=== PATIENT | male | born 1965 | race Caucasian/White ===

== ENCOUNTER 2017-11-18 05:52 | Day surgery (SDC) | payer BC, OTHER ==
[2017-11-18] MEDS ORDERED: GABAPENTIN 300 MG CAP PO ONE (06:06)
[2017-11-18] MEDS ORDERED: ACETAMINOPHEN 500 MG TAB PO ONE (06:06)
[2017-11-18] MEDS ORDERED: ceFAZolin 2 GM/DEXTROSE 100 ML IV ONE (06:06)
[2017-11-18] MEDS ORDERED: LIDOCAINE 1% 2 ML INJ ID PRN (06:07)
[2017-11-18] MEDS ORDERED: LR 1,000 ML IV ONE (06:07)
[2017-11-18] MEDS ORDERED: IBUPROFEN 200 MG TAB PO PRN (06:37)
--- NOTE | 2017-11-18 06:37 | PDHPUP ---
History & Physical Update H&P update statement: This history and physical update is based on an assessment of the patient which was completed after admission or registration (within 24 hours), but prior to the surgery/procedure. H&P update: H&P reviewed & patient examined, no change in patient's condition since H&P completed
[2017-11-18] MEDS ORDERED: CHLORHEXIDINE GLUC HIBICLENS 118 ML BTL TP ONE (07:06)
[2017-11-18] MEDS ORDERED: BUPIVACAINE 0.25% 30 ML SDV ONE (07:06)
[2017-11-18] MEDS ORDERED: THROMBIN (BOVINE) 5,000 UNIT VIAL TP ONE (07:07)
[2017-11-18] MEDS ORDERED: EPINEPHrine 1 MG/ML INJ ONE (07:07)
[2017-11-18] MEDS ORDERED: DEPO METHYLPREDNISOLONE 40 MG/ML SDV ONE (07:07)
[2017-11-18] MEDS ORDERED: BACITRACIN 50,000 UNITS/10 ML SYR IRR ONE (07:08)
[2017-11-18] MEDS ORDERED: MIDAZOLAM 2 MG/2 ML VIAL IVP ONE (07:20)
--- NOTE | 2017-11-18 07:21 | PDANEPAE ---
ANE History of Present Illness [id number] spinal stenosis ANE Past Medical History - Cardiovascular History Hx Hypertension: No Hx Arrhythmias: No Hx Chest Pain: No Hx Coronary Artery / Peripheral Vascular Disease: No Hx CHF / Valvular Disease: No Hx Palpitations: No - Pulmonary History Hx COPD: No Hx Asthma/Reactive Airway Disease: No Hx Recent Upper Respiratory Infection: No Hx Oxygen in Use at Home: No Hx Sleep Apnea: No Sleep Apnea Screening Result - Last Documented: Negative - Neurologic History Hx Cerebrovascular Accident: No Hx Seizures: No Hx Dementia: No Neurologic History Comment: numbness and tingling to bilateral legs - Endocrine History Hx Diabetes: No - Renal History Hx Renal Disorders: No - Liver History Hx Hepatic Disorders: No - Neurological & Psychiatric Hx Hx Neurological and Psychiatric Disorders: No - Cancer History Hx Cancer: No - Congenital Disorder History Hx Congenital Disorders: No - GI History Hx Gastrointestinal Disorders: Yes Gastrointestinal History Comment: reflux - Other Health History Other Health History: none - Chronic Pain History Chronic Pain: No - Surgical History Prior Surgeries: none ANE Review of Systems Review of Systems: - Exercise capacity METS (RN): 4 METS ANE Patient History - Allergies Allergies/Adverse Reactions: EKG PADS Allergy (Uncoded 11/10/17 17:24) Hives - Home Medications Home Medications: Ibuprofen [Motrin (*)] 200 mg PO DAILY PRN 11/03/17 [Last Taken 1 Week Ago ~] Multivitamins [Multivitamin (*)] 1 each PO DAILY 11/03/17 [Last Taken 1 Week Ago ~11/11/17] Omeprazole 20 mg PO DAILY 11/03/17 [Last Taken 1 Day Ago ~11/17/17] ACETAMINOPHEN 11/18/17 [Last Taken 1 Week Ago ~11/11/17] Pepto-Bismol PRN 11/18/17 [Last Taken 1 Day Ago ~11/17/17] - NPO status NPO Since - Liquids (Date): 11/17/17 NPO Since - Liquids (Time): 22:00 NPO Since - Solids (Date): 11/17/17 NPO Since - Solids (Time): 21:00 - Smoking Hx Smoking Status: Never smoked - Family Anes Hx Family Hx Anesthesia Complications: none ANE Labs/Vital Signs - Vital Signs Blood Pressure: 109/70 Heart Rate: 77 Respiratory Rate: 16 O2 Sat (%): 95 Height: 177.8 cm Weight: 68.039 kg ANE Physical Exam - Airway Neck exam: FROM Mallampati Score: Class 1 Mouth exam: normal dental/mouth exam - Pulmonary Pulmonary: no respiratory distress - Cardiovascular Cardiovascular: regular rate and rhythym - ASA Status ASA Status: II ANE Anesthesia Plan Anesthesia Plan: general endotracheal anesthesia
[2017-11-18] MEDS ORDERED: MIDAZOLAM 2 MG/2 ML VIAL ONE (07:23)
[2017-11-18] MEDS ORDERED: PROPOFOL 200 MG/20 ML VIAL ONE (07:27)
[2017-11-18] MEDS ORDERED: fentaNYL 100 MCG/2 ML INJ ONE ×2 (07:27)
[2017-11-18] MEDS ORDERED: HYDROmorphONE/DILAUDID 2 MG/ML INJ ONE (07:27)
[2017-11-18] MEDS ORDERED: fentaNYL 100 MCG/2 ML INJ IVP PRN (08:24)
[2017-11-18] MEDS ORDERED: HYDROCODONE/APAP 5/325 TAB PO PRN (08:24)
[2017-11-18] MEDS ORDERED: DIAZEPAM 5 MG/ML 1 ML SYR IVP PRN (08:24)
[2017-11-18] MEDS ORDERED: HYDROmorphONE/DILAUDID 2 MG/ML INJ IVP PRN (08:24)
[2017-11-18] MEDS ORDERED: PROMETHAZINE HCL 25 MG/ML INJ IVP PRN (08:24)
[2017-11-18] MEDS ORDERED: NALOXONE HCL 0.4 MG/ML INJ IVP PRN (08:24)
[2017-11-18] MEDS ORDERED: MEPERIDINE 25 MG/0.5 ML AMP IVP PRN (08:24)
[2017-11-18] MEDS ORDERED: ONDANSETRON 4 MG/2 ML VIAL IVP PRN (08:24)
[2017-11-18] MEDS ORDERED: PANTOPRAZOLE SODIUM 40 MG TAB PO SCH (09:00)
[2017-11-18] MEDS ORDERED: DEXAMETHASONE 4 MG/ML VIAL ONE (09:34)
[2017-11-18] MEDS ORDERED: ROCURONIUM 50 MG/5 ML VIAL ONE (09:34)
[2017-11-18] MEDS ORDERED: ONDANSETRON 4 MG/2 ML VIAL ONE ×2 (09:34→10:49)
[2017-11-18] MEDS ORDERED: BISMUTH SUBSALICYLATE 524 MG/30 ML UDL PO PRN (09:38)
[2017-11-18] MEDS ORDERED: ACETAMINOPHEN 325 MG TAB PO PRN (09:38)
--- NOTE | 2017-11-18 09:40 | POSTOPPROG ---
Post Op Note Date of Operation: 11/18/17 Surgeon: Annmarie Pires [place] Former Brace End: ERNESTINE Foster Anesthesiologist: Ke Anesthesia: GET(General Endotracheal), Local (Specify) Pre-op Diagnosis: Lumbar stenosis/LRS L4/5 Post-op Diagnosis: Lumbar stenosis/LRS L4/5 Indication: LLE pain Procedure: left L4/5 LRD Findings: none Inf/Abcess present in the surg proc area at time of surgery?: No Depth: Deep Incisional (Fascial) EBL: 50-100
--- NOTE | 2017-11-18 09:43 | SOAPPROG ---
SOAP Progress Note Assessment/Plan: Post Op Visit: S: Awake and alert. NAD. Pt with expected lower back pain O: AFVSS/PERRLA/EOMI no droop CN 2-12 grossly intact +lt touch 5/5 BUE/BLE = CDI A/P: 51 yo male that is s/p left L4/5 LRD -orders in place -call with any questions or concerns -pt to dc later today -rxs on chart -follow up in 2-3 weeks for a recheck -pt seen by Dr Pires as well 11/18/17 09:40 Objective: Vital Signs Temp Pulse Resp BP Pulse Ox 36.7 C 77 16 109/70 95 11/18/17 06:39 11/18/17 07:21 11/18/17 07:21 11/18/17 07:21 11/18/17 07:21 ICD10 Worksheet Patient Problems: Problems Problem Status Onset Lumbar radicular pain Acute Lumbar stenosis Acute - ICD10 Problem Qualifiers (1) Lumbar stenosis (2) Lumbar radicular pain
--- NOTE | 2017-11-18 09:47 | POSTANESTH ---
Post Anesthetic Evaluation Cardiovascular Status: Normal, Stable Respiratory Status: Normal, Stable Level of Consciousness/Mental Status: Can Participate in Eval Pain Control: Adequate, Prn Tx Ordered Nausea/Vomiting Control: Adequate, Prn Tx Ordered Complications Possibly Related to Anesthesia: None Noted
--- NOTE | 2017-11-18 11:07 | GOP ---
DATE OF OPERATION: 11/18/2017 SURGEON: Real Pires MD NEUROSURGEON: Kevin Pires MD. PRECISION AGRICULTURE TECHNICIAN: Mark Foster PA-C. PREOPERATIVE DIAGNOSIS: Left L5 radiculopathy. POSTOPERATIVE DIAGNOSIS: Left L5 radiculopathy. PROCEDURE PERFORMED: Left L4-5 lateral recess decompression with a left laminotomy, medial facetecto my and decompression of left L5 nerve root and lateral recess (6047), microscoped. FINDINGS: SPECIMENS: None. ESTIMATED BLOOD LOSS: 10 cc. INDICATIONS: Mr. Chu is a 51-year-old with a long history of problems in the lower back and radi ating pain in the left leg, principally in the L5 distribution. MRI demonstrated prolapse of the L4- 5 and the L5-S1 disk and there was indeed left foraminal stenosis at L5-S1 due to facet arthropathy a t that level, but he also had left lateral recess for the 5-root at the L4-5 level and I suggested a single-level decompression in an attempt to solve his problem. The symptoms continued. I suggested more extensive surgery including a two-level fusion at L4-5/L5-S1, but this seems unreasonable in the context of what we saw on his MRI and his clinical presentation. It is my hope that a very simple s urgery would suffice. I was concerned, however, about the left L5-S1 foramina and I was not totally convinced that this surgery would solve his problems altogether. He understood this. He did want to proceed with a very small operation. The risk of nerve injury, spinal fluid leak and continued symp toms was discussed. He accepted them and he wanted to proceed. DESCRIPTION OF PROCEDURE: The patient was taken to the operating room and placed in the supine posit ion. General anesthesia was begun. He was flipped prone onto the Inder frame. Care was taken to p ad all points of contact. His back was sterilely prepped and draped in the usual fashion. A localiz ing x-ray was taken. We made a midline incision above the L4-5 interspace. The subcutaneous tissue was dissected using Bovie cautery down through the fascia and a subperiosteal dissection was made poppy n the left L4-5 lamina. A self-retaining retractor was placed. A localizing x-ray was taken. We dr illed a left L4-5 laminotomy. We opened the ligamentum flavum and under the microscope, we decompres sed the left lateral recess. The superior articular process and the rostral lamina of L5 were actual ly cutting into the L5 nerve root just as it entered on the lateral recess adjacent to the L5 pedicle . We unroofed the L5 nerve root down to the lower third of the pedicle of L5 and got a great decompr ession. We then swept the L5 nerve root medially and looked underneath it and there was some prolaps e of the L4-5 disk and a small disk fragment in a subligamentous location that was also causing sligh t mass effect on the root. We scraped this out. We did not perform a microdiskectomy. We did not e nter the L4-5 disk proper, we simply removed this small extrusion that was directly under the root. We irrigated with antibiotic saline solution, shot a final x-ray demonstrating the extent of the deco mpression. We then placed some Depo-Medrol over the left L5 root and then closed the incision in mul tiple layers using Vicryl sutures. A running PDS was placed in the skin itself. There were no compl ications. COMPLICATIONS: None. /[id number]/MODL
[2017-11-18 12:08] VITALS: BP 116/70
[2017-11-19] MEDS ORDERED: MULTIVITAMINS 1 EACH TAB PO SCH (09:00)
== END 2017-11-18 12:05 ==
LOC: FSGY 05:52 → UNDOADMOB 05:52 → F3N 05:52 → EDSTATUS 10:00 → FSGY 12:05 → UNDODISOB 12:05
PROVIDERS: ATTEND Neurological Surgery
DX: M51.36 Other intervertebral disc degeneration, lumbar region (principal); M54.16 Radiculopathy, lumbar region
CPT/HCPCS: J0171; J0690; J1030; J1100; J1170; J1200; J2250; J2405; J2704; J3010